=== PATIENT | female | born 1960 | race Caucasian/White ===

== ENCOUNTER → 2020-06-07 | Outpatient (CLI) | payer OTHER ==
--- NOTE | 2020-06-07 22:36 | CONS ---
CONSULTATION DATE OF SERVICE: 06/07/2020 This patient is a 60-year-old lady who has been evaluated in Sleep Center for possible obstructive sleep apnea-hypopnea syndrome. HISTORY OF PRESENT ILLNESS/SLEEP-WAKE EVALUATION: Patient's usual sleep schedule is from 11 p.m. to 7:30 or 7:40 a.m. Sometimes she has problems with falling asleep. She has TV. Used to read in her bedroom. She usually sleeps in different positions, including side position. According to her family, she is kicking at night. She is grinding her teeth and has snoring. During the day the patient has difficulties paying attention, problems with memory and concentration. [place] Sleepiness Scale is 6. PAST MEDICAL HISTORY: Positive for hypothyroidism, allergies, memory problems. PAST SURGICAL HISTORY: Tubal ligation, large toe surgery. MEDICATIONS: Aspirin 81 mg once a day, Singulair once a day. SOCIAL HISTORY: Negative for smoking or using alcohol. FAMILY HISTORY: Positive for hyperlipidemia, cancer, insomnia. REVIEW OF SYSTEMS: Awakenings from sleep. Difficulties paying attention during the day. Problems with memory. PHYSICAL EXAMINATION: GENERAL: A pleasant lady without distress. VITAL SIGNS: BP 110/75, HR 68, RR 15, height 5 feet 2 inches, weight 131, BMI 23.9, temperature 98.6. Oxygen saturation 96%. HEENT: PERRLA, EOMI. Evaluation of oropharynx showed tongue protrudes midline. Low position of soft palate. Mallampati III. NECK: Supple. No JVD. Thyroid is not palpable. Neck measures 12-1/2 inches in circumference. LUNGS: Clear to percussion and to auscultation. Good air exchange. No wheezing or rhonchi. HEART: S1, S2 regular. No murmurs, gallops or rubs. ABDOMEN: Soft and nontender. Bowel sounds are present. No organomegaly appreciated. EXTREMITIES: No clubbing or cyanosis. ROBOTICS TECHNOLOGIST: Awake, alert, and oriented X3. Cranial nerves 2 to 7 intact. There is no fasciculation or atrophy. noted. No focal deficits observed. lady without distress, oropharynx low position of soft palate. Mallampati 3. Neck 12-1/2 inches in circumference of the physical exam is full my template. IMPRESSION: 1. Snoring, low position of soft palate, awakenings from sleep; possible obstructive sleep apnea-hypopnea syndrome. 2. History of significant amount of movements during sleep; possibly periodic limb movements. 3. Memory problems. 4. Hypothyroidism. 5. Allergies. 6. Status post tubal ligation. PLAN: 1. Polysomnography for evaluation of patient's breathing during sleep. 2. CPAP/BiPAP titration if sleep study confirms obstructive sleep apnea-hypopnea syndrome. 3. Preferable position during sleep on the side. 4. No driving if patient feels any sleepiness. 5. I will see patient for follow up visit to explain results of testing and following plan. Thank you very much for referring this patient for consultation. Sincerely, Giovanni Bermeo MD, PhD, FAASM Diplomat of [place] [employer] [place] [employer] Internet Programmer of [facility] [place] MMODL / DEVIKAN: [id number] /
== END | disposition home or self-care (01) ==
LOC: SLEEP 14:32
PROVIDERS: ATTEND Internal Medicine
DX: R06.83 Snoring (principal); G47.8 Other sleep disorders; G47.69 Other sleep related movement disorders; R41.3 Other amnesia; E03.9 Hypothyroidism, unspecified; T78.40XA Allergy, unspecified, initial encounter; Z98.51 Tubal ligation status; Z84.89 Family history of other specified conditions; Z79.82 Long term (current) use of aspirin; Z79.899 Other long term (current) drug therapy
CPT/HCPCS: 99211

== ENCOUNTER → 2020-10-19 | Outpatient (CLI) | payer OTHER ==
--- NOTE | 2020-10-19 19:38 | SFUN ---
SLEEP CENTER FOLLOW UP NOTE DATE OF SERVICE: 10/19/2020 This 60-year-old lady has been followed in Sleep Center for treatment of obstructive sleep apnea-hypopnea syndrome. Recently the patient had a home sleep apnea test which was done by another institution, and I reviewed the results of the home sleep apnea test with the patient. The test showed obstructive sleep apnea-hypopnea syndrome with apnea-hypopnea index 18.2 with lowest oxygen level 87%. I explained to the patient the next step of treatment, which should include CPAP therapy. [place] Sleepiness Scale today is 10, which indicates sleepiness. MEDICATIONS: 1. Aspirin 81 mg once a day. 2. [place] Thyroid 60 mcg once a day. PHYSICAL EXAMINATION: GENERAL: A pleasant patient in no distress. VITAL SIGNS: BP 132/76, HR 74, RR 15, height 5 feet 2 inches, weight 131.0, temperature 97.1. Oxygen saturation at room air 98%. HEENT: PERRLA, EOMI. Evaluation of oropharynx showed tongue protrudes midline. Low position of soft palate. Mallampati III. NECK: Supple. No JVD. Thyroid is not palpable. LUNGS: Clear to percussion and to auscultation. Good air exchange. No wheezing or rhonchi. HEART: S1, S2 regular. No murmurs, gallops or rubs. ABDOMEN: Soft and nontender. Bowel sounds are present. No organomegaly appreciated. EXTREMITIES: No clubbing or cyanosis. NURSING DIRECTOR: Awake, alert, and oriented X3. Cranial nerves 2 to 7 intact. There is no fasciculation or atrophy. noted. No focal deficits observed. IMPRESSION: 1. Moderate obstructive sleep apnea-hypopnea syndrome. 2. Hypothyroidism. 3. Memory problems. 4. Patient presented with symptoms of excessive daytime sleepiness. [place] Sleepiness Scale is 10. 5. Allergies. 6. Status post tubal ligation. PLAN: 1. CPAP titration for correction of respiratory abnormalities during sleep. 2. Sleep hygiene with regular time in bed for 7-1/2 hours. 3. Precautions related to driving. No driving if feeling any sleepiness. Thank you very much for allowing me to participate in the management of your patient. Sincerely, Giovanni Bermeo MD, PhD, FAASM Diplomat of [place] [employer] [place] [employer] Canvass Manager of [facility] [place] MMODL / IJN: [id number] /
== END ==
LOC: SLEEP 13:32
PROVIDERS: ATTEND Internal Medicine
DX: G47.33 Obstructive sleep apnea (adult) (pediatric) (principal); E03.9 Hypothyroidism, unspecified; Z98.51 Tubal ligation status; T78.40XA Allergy, unspecified, initial encounter; R41.3 Other amnesia

== ENCOUNTER → 2021-03-29 | Outpatient (CLI) | payer OTHER ==
--- NOTE | 2021-03-29 22:28 | SFUN ---
SLEEP CENTER FOLLOW UP NOTE DATE OF SERVICE: 03/29/2021 This 60-year-old lady has been followed in Sleep Center for treatment of obstructive sleep apnea-hypopnea syndrome. Recently the patient had a sleep study which showed that she has obstructive sleep apnea-hypopnea syndrome with apnea-hypopnea index 18.2. Then the patient had CPAP titration. Her respiration was normalized on CPAP. She received her CPAP unit. Today is her first visit after she started to use CPAP equipment. The patient feels better with the CPAP and is using the equipment every night. Sometimes lately she started to feel not so good during the day as she recently was. I checked her CPAP unit. Range of the pressure is 4 to 7, average pressure 7 cm of water. Usage is 30/30 nights and 28/30 nights for more than 4 hours, average 7.1 hours per night. Leak is 11 L/minute, which is borderline. Apnea-hypopnea index is 3.7. [place] Sleepiness Scale is 6. MEDICATIONS: Aspirin 81 mg once a day, [place] Thyroid 60 mcg once a day. PHYSICAL EXAMINATION: GENERAL: Pleasant patient in no distress. VITAL SIGNS: BP 113/62, HR 70, RR 18, weight 136.4, temperature 97.1, oxygen saturation at room air 96%. HEENT: PERRLA, EOMI, evaluation of oropharynx showed tongue protrudes midline. Low position of soft palate; Mallampati III. NECK: Supple, no JVD. Thyroid is not palpable. LUNGS: Clear to percussion and to auscultation. Good air exchange. No wheezing or rhonchi. HEART: S1, S2 regular. No murmurs, gallops, or rubs. ABDOMEN: Soft and nontender. Bowel sounds are present. No organomegaly appreciated. EXTREMITIES: No clubbing or cyanosis. LAWN SERVICE MANAGER: Awake, alert, and oriented X3. Cranial nerves 2 to 7 intact. There is no fasciculation or atrophy. noted. No focal deficits observed. IMPRESSION: 1. Moderate obstructive sleep apnea-hypopnea syndrome. The patient demonstrated good compliance with treatment, benefitting from treatment. 2. Hypothyroidism. 3. Memory problems. 4. Patient presented with symptoms of excessive daytime sleepiness. [place] Sleepiness Scale was 10. [place] Sleepiness Scale reduced to 6 now. 5. Allergies. 6. Status post tubal ligation. PLAN: 1. I changed regimen in the machine to the range of the pressure 4 to 9 cm of water. 2. Patient will continue to use PAP equipment every night for the whole night. 3. Sleep hygiene with regular time in bed for at least 7-1/2 to 8 hours. 4. Precautions related to driving. No driving if feeling sleepiness. 5. I will maintain all necessary prescription for PAP supplies including mask, tube, filters. 6. Watching weight. 7. Follow-up visit in 6 months or earlier if patient has any problems. Thank you very much for allowing me to participate in the management of your patient. Sincerely, Giovanni Bermeo MD, PhD, FAASM Diplomat of [place] [employer] Sleep Medicine Board of [place] [employer] Medicine Gun Examiner of [facility] [place] MMGALLO / DEVIKAN: [id number] /
== END ==
LOC: SLEEP 15:36
PROVIDERS: ATTEND Internal Medicine
DX: G47.33 Obstructive sleep apnea (adult) (pediatric) (principal); E03.9 Hypothyroidism, unspecified; R41.3 Other amnesia; T78.40XA Allergy, unspecified, initial encounter; Z98.51 Tubal ligation status; Z99.89 Dependence on other enabling machines and devices

== ENCOUNTER → 2021-09-24 | Outpatient (CLI) | payer OTHER ==
[2021-09-24 10:39] LABS: HCT 42.8 % (37.2-46.3); HGB 14.2 g/dL (12.0-15.0); MCHC 33.2 g/dL (32.0-37.0); MCV 93.4 fL (80.0-97.0); Mean Platelet Volume 9.8 fL (9.5-12.2); NRBC Per 100 WBC 0 /100 WBCS (0.0-0.0); Platelet Count 270 X 10*3/uL (140-440); RBC 4.58 X 10*6/uL (4.10-5.20); RDW 12.9 % (11.5-14.5); WBC 5.96 X 10*3/uL (4.50-10.00)
[2021-09-24 11:11] LABS: ALT 13 U/L (8-44); AST 21 U/L (13-35); African American GFR (CKD) 110.3 (60.0-200.0); Albumin 4.1 g/dL (3.8-4.9); Albumin/Globulin Ratio 1.68 (1.60-3.17); Alkaline Phosphatase 82 U/L (41-126); BUN/Creat Ratio 20.91 Ratio (12.00-20.00); Blood Urea Nitrogen 13.3 mg/dL (9.0-27.0); Calcium 9.1 mg/dL (8.7-10.3); Carbon Dioxide 23.9 mmol/L (20.0-27.5); Chloride 106 mmol/L (96-109); Chol/HDL Ratio 3.89 Ratio; Globulin 2.4 g/dL (1.6-3.3); Glucose 116 mg/dL (70-110); LDL Cholesterol,Calculated 164.2 mg/dL (0.0-131.0); Non-African American GFR(CKD) 95.2 (60.0-200.0); Potassium 3.9 mmol/L (3.5-5.5); Sodium 140 mmol/L (135-145); Total Protein 6.5 g/dL (6.2-8.2); VLDL Calculation 18.62 mg/dL (5.00-40.00)
[2021-09-24 17:03] LABS: Clam IgE <0.10 kU/L; Codfish IgE <0.10 kU/L; Egg White IgE <0.10 kU/L; Peanut IgE <0.10 kU/L; Scallop IgE <0.10 kU/L; Shrimp IgE <0.10 kU/L; Soybean IgE <0.10 kU/L; Walnut IgE (Food) <0.10 kU/L
== END | disposition home or self-care (01) ==
LOC: LABWHC1 07:03
PROVIDERS: ATTEND Physician Assistant Medical
DX: E55.9 Vitamin D deficiency, unspecified (principal); R14.0 Abdominal distension (gaseous); R14.3 Flatulence; E03.9 Hypothyroidism, unspecified; R68.89 Other general symptoms and signs
CPT/HCPCS: 36415; 80053; 80061; 82306; 82607; 82785; 83036; 84439; 84443; 84630; 85027; 86003

== ENCOUNTER → 2021-09-26 | Outpatient (CLI) | payer OTHER ==
--- NOTE | 2021-09-26 13:56 | SFUN ---
SLEEP CENTER FOLLOW UP NOTE DATE OF SERVICE: 09/26/2021 This 61-year-old lady has been followed in Sleep Center for treatment of obstructive sleep apnea-hypopnea syndrome. The patient continues to use her CPAP equipment, but had problems with nasal pillow mask; mask was changed to DreamWear [id number] mask, and with this mask she feels more comfortable. She is also experiencing some difficulties related to humidity. Sometimes there is water in the tube and this water may go to her nose. [place] Sleepiness Scale today is 8, which is in normal range. I checked her CPAP unit. Range of the pressure is 4 to 9, average pressure 8.5. Usage is 19/30 nights, average 4.9 hours per night. Leak is 8 L/minute, which is acceptable. Apnea-hypopnea index is 2.3, which is in normal range. MEDICATIONS: Thyroid supplement, vitamins. PHYSICAL EXAMINATION: GENERAL: Pleasant patient in no distress. VITAL SIGNS: BP 123/78, HR 72, RR 14, weight 137 pounds, height 5 feet 1-1/2 inches, body mass index 25.4, temperature 98.2, oxygen saturation at room air 97%. HEENT: PERRLA, EOMI, evaluation of oropharynx showed tongue protrudes midline. Low position of soft palate; Mallampati III. NECK: Supple, no JVD. Thyroid is not palpable. LUNGS: Clear to percussion and to auscultation. Good air exchange. No wheezing or rhonchi. HEART: S1, S2 regular. No murmurs, gallops, or rubs. ABDOMEN: Soft and nontender. Bowel sounds are present. No organomegaly appreciated. EXTREMITIES: No clubbing or cyanosis. INTERNAL SALES: Awake, alert, and oriented X3. Cranial nerves 2 to 7 intact. There is no fasciculation or atrophy. noted. No focal deficits observed. IMPRESSION: 1. Moderate obstructive sleep apnea-hypopnea syndrome. The patient demonstrated borderline compliance with treatment, benefitting from treatment. She has some problems related to humidity, position of the machine and condensation of water in the tube. 2. Hypothyroidism. 3. History of memory problems. 4. Allergies. 5. Status post tubal ligation. PLAN: 1. Prescription for heated tube has been written. 2. We discussed position of the machine and position of the tube during sleep. should stay lower than patient's head and tube has to have direct position to the machine. 3. Patient will continue to use PAP equipment every night for the whole night. 4. Sleep hygiene with regular time in bed for at least 7-1/2 to 8 hours. 5. Precautions related to driving. No driving if feeling sleepiness. 6. I will maintain all necessary prescription for PAP supplies including mask, tube, filters. 7. Watching weight. 8. Follow-up visit in 6 months or earlier if patient has any problems. Thank you very much for allowing me to participate in the management of your patient. Sincerely, Giovanni Bermeo MD, PhD, FAASM Diplomat of [place] [employer] Sleep Medicine Board of [place] [employer] [place] Compliance Coordinator of [facility] [place] MMODL / DEVIKAN: [id number] /
== END ==
LOC: SLEEP 11:32
PROVIDERS: ATTEND Internal Medicine
DX: G47.33 Obstructive sleep apnea (adult) (pediatric) (principal); E03.9 Hypothyroidism, unspecified; T78.40XA Allergy, unspecified, initial encounter; Z86.69 Personal history of other diseases of the nervous system and sense organs; Z98.51 Tubal ligation status; Z99.89 Dependence on other enabling machines and devices

== ENCOUNTER → 2022-04-24 | Outpatient (CLI) | payer OTHER ==
--- NOTE | 2022-04-24 14:28 | P.PN ---
Subjective DATE: 04/24/2022 FOLLOW UP VISIT. Patient with obstructive sleep apnea hypopnea syndrome return to sleep center for follow-up visit. Information from previous visit have been reviewed. Patient is using PAP equipment every night for the whole night, getting PAP supplies in time. The patient does not have significant problems with the mask, PAP unit and humidification. [place] sleepiness scale is 6, which is normal. I checked information from PAP unit. PAP unit pressure 4-9, average 8.5 cm H2O. Usage is about 60 % for more then 4 hours, average 6.5 hours per night. Leak is to 7 l/m, which is in acceptable range. Apnea Hypopnea Index is 2.1, which is normal. MEDICATIONS:1. [place] thyroid During physical exam: GENERAL: A pleasant patient without any distress. VITAL SIGNS: BP 113/73, HR 68, RR 16, weight 137.2, temperature 96.9, oxygen saturation at room air 98 % . HEENT: PERRLA, EOMI.low position of soft palate, Mallapati 3 . NECK: Supple. No JVD. LUNGS: Clear to percussion and to auscultation. Good air exchange. No wheezing or rhonchi. HEART: S1, S2 regular. ABDOMEN: Soft and nontender.[] EXTREMITIES: No clubbing or cyanosis. WOOD HEEL FLAP RUBBER: Awake, alert, and oriented x3. No focal deficit. Impressions: 1. Obstructive sleep apnea-hypopnea syndrome. Patient demonstrated borderline compliance with treatment, benefiting from treatment. 2. Hypothyroidism. 3. ALLERGY. 4. History of memory problems. 5. Status post tubal ligation. Plan: 1. Continue using PAP equipment every night for the whole night. I teach patient how to adjust temperature in heated humidifier and tube. Temperature and humidifier was increased to level of 4. 2. To change air filter at least 1-2 times per month. 3. PAP unit should stay lower then position of the head. 4. Advised patient to remove all remaining water from humidifier canister daily and make it dry after each usage. Refill canister with fresh distilled water before each usage. 5. Sleep hygiene with regular time in bed for at least 8 hours. 6. Precautions related to driving. No driving if feel any sleepiness. 7. I will maintain prescription for PAP supplies including mask, tube, filters. 8. Follow up visit in 6 months or earlier if patient has any problems. 9. Watching weight. Thank you very much for allowing me to participate in the management of your patient. Giovanni Bermeo MD, PhD, FAASM. Diplomat of [place] [employer], Sleep Medicine Board by [place] Medicine Director Of Business Services of [facility] [place]
== END ==
LOC: SLEEP 13:20
PROVIDERS: ATTEND Internal Medicine
DX: G47.33 Obstructive sleep apnea (adult) (pediatric) (principal); E03.9 Hypothyroidism, unspecified; Z99.89 Dependence on other enabling machines and devices; R41.3 Other amnesia; Z98.51 Tubal ligation status
CPT/HCPCS: 99212

== ENCOUNTER → 2023-03-20 | Outpatient (CLI) | payer OTHER ==
[2023-03-21 01:20] LABS: Alternaria alternata IgE <0.10 kU/L; Aspergillus fumagatus IgE <0.10 kU/L; Birch IgE <0.10 kU/L; Cat Epith & Dander IgE <0.10 kU/L; Cladosporian herbarum IgE <0.10 kU/L; Dermato. farinae IgE <0.10 kU/L; Dog Dander IgE <0.10 kU/L; Maple (Box Elder) IgE <0.10 kU/L; Oak IgE <0.10 kU/L; Ragweed,Common IgE <0.10 kU/L
== END | disposition home or self-care (01) ==
LOC: LABWHC1 13:50
PROVIDERS: ATTEND Otolaryngology
DX: J30.89 Other allergic rhinitis (principal)
CPT/HCPCS: 36415; 82785; 86003

== ENCOUNTER → 2023-06-18 | Outpatient (CLI) | payer MEDICARE, BC ==
--- NOTE | 2023-06-18 14:34 | P.PN ---
Subjective DATE: 06/18/2023 FOLLOW UP VISIT. Patient with obstructive sleep apnea hypopnea syndrome return to sleep center for follow-up visit. Information from previous visit have been reviewed. Patient was not able to use sure CPAP unit recently because humidifier chamber have been broken and to water leaks out. [place] sleepiness scale is, which is normal. I checked information from PAP unit. PAP unit pressure 4-9, average 8.5 cm H2O. Usage is 5.6 hours per night. Leak is 11 l/m, which is in acceptable range. Apnea Hypopnea Index is 1.9, which is normal. MEDICATIONS: None at the present time During physical exam: GENERAL: A pleasant patient without any distress. VITAL SIGNS: BP 124/81, HR 64, RR 12, weight 135.2, temperature 98.3, oxygen saturation at room air 95 % . HEENT: PERRLA, EOMI.low position of soft palate, Mallapati 3 . NECK: Supple. No JVD. LUNGS: Clear to percussion and to auscultation. Good air exchange. No wheezing or rhonchi. HEART: S1, S2 regular. ABDOMEN: Soft and nontender.[] EXTREMITIES: No clubbing or cyanosis. AUTOBODY TECHNICIAN: Awake, alert, and oriented x3. No focal deficit. Impressions: 1. Obstructive sleep apnea-hypopnea syndrome. Patient was not able to use CPAP equipment recently, because he'll humidifier chamber was broken. 2. History of hypothyroidism. 3. ALLERGY. 4. History of memory problems. 5. History of ADHD. 6. Status post tubal ligation. Plan: 1. Continue using PAP equipment every night for the whole night. 2. To change air filter at least 1-2 times per month. 3. PAP unit should stay lower then position of the head. 4. Advised patient to remove all remaining water from humidifier canister daily and make it dry after each usage. Refill canister with fresh distilled water before each usage. 5. Sleep hygiene with regular time in bed for at least 8 hours. 6. Precautions related to driving. No driving if feel any sleepiness. 7. I will maintain prescription for PAP supplies including mask, tube, filters. Prescription to replace water chamber. 8. Watching weight. 9. Follow up visit in 6 months or earlier if patient has any problems. Thank you very much for allowing me to participate in the management of your patient. Giovanni Bermeo MD, PhD, FAASM. Diplomat of [place] [employer], Sleep Medicine Board by [place] [employer] Field Sales Specialist of [facility] [place]
== END ==
LOC: 3 N SLEEP 13:58
PROVIDERS: ATTEND Internal Medicine
DX: G47.33 Obstructive sleep apnea (adult) (pediatric) (principal); E03.9 Hypothyroidism, unspecified; F90.9 Attention-deficit hyperactivity disorder, unspecified type; T78.40XA Allergy, unspecified, initial encounter; Z86.59 Personal history of other mental and behavioral disorders; Z98.51 Tubal ligation status; Z99.89 Dependence on other enabling machines and devices
CPT/HCPCS: 99212